=== PATIENT | male | born 1990 | race Caucasian/White ===

== ENCOUNTER 2017-11-30 18:19 | Emergency (ER) | payer OTHER ==
[2017-11-30 18:45] VITALS: BP 126/77; PULSE 97; RESP 18; TEMP 98.5
[2017-11-30] MEDS ORDERED: PROPARACAINE 0.5% OPHTH DROPS 15 ML BTL BOTH EYES STA (19:32)
[2017-11-30] MEDS ORDERED: DIPH,PERTUS(ACELL)TETVAC-LF 0.5 ML VIAL IM ONE (19:42)
[2017-11-30] MEDS ORDERED: ERYTHROMYCIN 5 MG/GM OPHTH OINT 3.5 GM TUBE RIGHT EYE STA (19:45)
--- NOTE | 2017-11-30 20:14 | ED ---
Eye Problem HPI - General Chief complaint: Eye Problems Stated complaint: foreign body rt eye Time Seen by Provider: 11/30/17 19:01 Source: patient, RN notes reviewed, old records reviewed Mode of arrival: ambulatory Limitations: no limitations - History of Present Illness Initial comments: Patient is a 27-year-old male with your complaint of right eye irritation. Patient ports they had a metal foreign body with in the right eye for the past three days. He went to an radio director in a try to remove the foreign body yesterday was unsuccessful attempt. Patient states that he left that office. He thought it would just come out on it's own. Continuing to bother him.Patient does not wear contacts or glasses. He reports that he did this while grinding metal. - Related Data Previous Rx's Medication Instructions Recorded Erythromycin Ophth Oint [Romycin 1 applic RIGHT EYE QID #1 tube 11/30/17 Ophth Oint] Allergies Allergy/AdvReac Type Severity Reaction Status Date / Time Penicillins Allergy Rash/Hives Verified 11/30/17 18:45 Review of Systems ROS Statement: Those systems with pertinent positive or pertinent negative responses have been documented in the HPI. ROS Other: All systems not noted in ROS Statement are negative. Past Medical History Past Medical History: No Reported History History of Any Multi-Drug Resistant Organisms: None Reported Past Surgical History: No Surgical Hx Reported Past Psychological History: No Psychological Hx Reported Smoking Status: Current every day smoker Past Alcohol Use History: Occasional Past Drug Use History: Marijuana General Exam - General Exam Comments Initial Comments: 27 year old male, no acute distress. Limitations: no limitations General appearance: alert, in no apparent distress Head exam: Present: atraumatic, normocephalic, normal inspection Eye exam: Present: normal appearance, PERRL, EOMI, conjunctival injection (R eye. ), other (Metal foreign body at 11 oclock position with surrounding rust ring. ). Absent: scleral icterus, periorbital swelling ENT exam: Present: normal exam, mucous membranes moist Neck exam: Present: normal inspection. Absent: tenderness, meningismus, lymphadenopathy Respiratory exam: Present: normal lung sounds bilaterally. Absent: respiratory distress, wheezes, rales, rhonchi, stridor Cardiovascular Exam: Present: regular rate, normal rhythm, normal heart sounds. Absent: systolic murmur, diastolic murmur, rubs, gallop, clicks GI/Abdominal exam: Present: soft, normal bowel sounds. Absent: distended, tenderness, guarding, rebound, rigid Psychiatric exam: Present: normal affect, normal mood Skin exam: Present: warm, dry, intact, normal color. Absent: rash Course Vital Signs 11/30/17 18:41 Temperature 98.5 F Pulse Rate 97 Respiratory 18 Rate Blood Pressure 126/77 O2 Sat by Pulse 98 Oximetry Medical Decision Making - Medical Decision Making 27 year old male with metal foriegn body at 11 oclock position of R eye. Propariacine instilled into the eye, and with using Street lamp and alter brush I was able to remove rust ring and foreign body. This took multiple attempts as patient foreign body was embedded within the cornea. Discussed using antibiotic ointment for eye and to follow up with opthalmology. Discussed return parameters. Given TDAP vaccines. Disposition Clinical Impression: Foreign body of right eye Disposition: HOME SELF-CARE Condition: Good Instructions: Eye Foreign Body (ED) Additional Instructions: Patient denies follow-up with ophthalmology on Saturday. Apply the eye ointment and every 4 hours. Return to emergency department if any alarming signs or symptoms occur. Prescriptions: Erythromycin Ophth Oint [Romycin Ophth Oint] 1 applic RIGHT EYE QID #1 tube Is patient prescribed a controlled substance at d/c from ED?: No Referrals: None,Stated [Primary Care Provider] - 1-2 days Sixto Toledo MD [STAFF PHYSICIAN] - 1-2 days Time of Disposition: 20:13
== END 2017-11-30 20:19 | disposition home or self-care (01) ==
LOC: EC 18:19
DX: T15.01XA Foreign body in cornea, right eye, initial encounter (principal); F17.200 Nicotine dependence, unspecified, uncomplicated; Z88.0 Allergy status to penicillin; Z23 Encounter for immunization; Y93.89 Activity, other specified
CPT/HCPCS: 65220; 90471; 90715; 99283

== ENCOUNTER 2019-09-17 16:49 | Emergency (ER) | payer OTHER ==
[2019-09-17] MEDS ORDERED: SULFAMETHOX-TMP 800-160MG 1 EACH TAB PO STA (17:47)
[2019-09-17] MEDS ORDERED: CEPHALEXIN 500MG STARTER PACK 4 CAP BTL PO STA (18:22)
[2019-09-17] MEDS ORDERED: LIDOCAINE 1% INJ 10MG/ML (20 ML MDV) SQ STA (19:13)
--- NOTE | 2019-09-17 19:23 | XR ---
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 No radiopaque foreign bodies. The soft tissues are remarkable for diffuse mild/moderate soft tissue swelling and prominent soft tis elvira emphysema along the entire palmar surface of the third digit and most pronounced at the level of the middle and distal phalanx. IMPRESSION: Prominent soft tissue findings.
--- NOTE | 2019-09-17 19:39 | ED ---
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 Patient reports there was only water and the electric power superintendent. He states that his tetanus is up-to-date within last few months. He reports full active range of motion sensation is digit. He denies any other acute complaints. Systemic: Pt denies fatigue, fever/chills, rash. Pt denies weakness, night sweats, weight loss. Neuro: Pt denies headache, visual disturbances, syncope or pre-syncope. HEENT: Pt denies ocular discharge or irritation, otalgia, rhinorrhea, pharyngitis or notable lymphadenopathy. Cardiopulmonary: Pt denies chest pain, SOB, heart palpitations, dyspnea on exertion. Abdominal/GI: Pt denies abdominal pain, n/v/d. : Pt denies dysuria, burning w/ urination, frequency/urgency. Denies new onset urinary or bowel incontinence. MSK: Pt denies myalgia, loss of strength or function in extremities. Neuro: Pt denies new onset weakness, paresthesias. - Related Data Previous Rx's Medication Instructions Recorded Erythromycin Ophth Oint [Romycin 1 applic RIGHT EYE QID #1 tube 11/30/17 Ophth Oint] Cephalexin [Keflex] 500 mg PO Q6HR 10 Days #40 cap 09/17/19 Allergies Allergy/AdvReac Type Severity Reaction Status Date / Time Penicillins Allergy Rash/Hives Verified 09/17/19 17:23 Review of Systems ROS Statement: Those systems with pertinent positive or pertinent negative responses have been documented in the HPI. ROS Other: All systems not noted in ROS Statement are negative. Past Medical History Past Medical History: No Reported History History of Any Multi-Drug Resistant Organisms: None Reported Past Surgical History: No Surgical Hx Reported Past Psychological History: No Psychological Hx Reported Smoking Status: Current every day smoker Past Alcohol Use History: Occasional Past Drug Use History: Marijuana General Exam - General Exam Comments Initial Comments: Constitutional: NAD, AOX3, Pt has pleasant affect. HEENT: NC/AT, trachea midline, neck supple, no lymphadenopathy. xternal ears appear normal, without discharge. Mucous membranes moist. Eyes PERRLA, EOM intact. There is no scleral icterus. No pallor noted. Cardiopulmonary: RRR, no murmurs, rubs or gallops, no JVD noted. Lungs CTAB in anterior and posterior greer. No peripheral edema. Neuro: CN II-XII grossly intact.. No cervical spinal tenderness. MSK: 1.5 cm laceration pad of the third digit left hand. Full active range of motion of digit. Flexion and extension intact. Full active ROM of hand. Sensation intact. Capillary refill is 2 seconds. Loosely approximated with one simple interrupted suture. Irrigated. Full active ROM in upper and lower extremities, 5/5 stregnth. Limitations: no limitations Course Vital Signs 09/17/19 09/17/19 17:23 19:59 Temperature 98.1 F 98.9 F Pulse Rate 63 69 Respiratory 18 17 Rate Blood Pressure 101/65 125/63 O2 Sat by Pulse 99 100 Oximetry Procedures - Laceration Laceration #1 Consent Obtained: verbal consent Site: hand Size (cm): 1 (1.5) Description: linear Anesthetic Used: lidocaine 1% Anesthesia Technique: local infiltration Amount (mls): 1 Pre-repair: wound explored, irrigated extensively, deep structures intact Type of Sutures: nylon Size of Sutures: 5-0 Number of Sutures: 1 (loose approximation) Technique: simple, interrupted Patient Tolerated Procedure: well, no complications Medical Decision Making - Medical Decision Making 29-year-old male patient in [place] complaint of laceration to palmar aspect left 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 Patient reports there was only water and the electric power superintendent. He states that his tetanus is up-to-date within last few months. He reports full active range of motion sensation is digit. He denies any other acute complaints. Pt VSS, afebrile. Physical exam displayed: 1.5 cm laceration pad of the third digit left hand. Full active range of motion of digit. Flexion and extension intact. Sensation intact. Capillary refill is 2 seconds. Loosely approximated with one simple interrupted suture. Irrigated and cleaned. Plain film displayed mild to moderate soft tissue swelling prone soft tissue emphysema. Case was discussed with Dr. Gallegos who recommended antibiotics loose approximation with one suture to the laceration soft wrap outpatient follow-up with his office. This was performed. Patient will be discharged with Keflex and return precautions. Case discussed with Dr. Sal. Disposition Clinical Impression: High-pressure injection injury of finger Disposition: HOME SELF-CARE Condition: Stable Instructions (If sedation given, give patient instructions): Finger Laceration (ED) Additional Instructions: Take antibiotics as directed. Keep area clean and bandaged. Follow up with Dr. Gallegos tomorrow. Monitor for signs of infection including redness pain and decreased range of motion Please return for suture removal: Hand: 7-10 days Please monitor for signs and symptoms of infection including: redness, warmth, drainage, discharge. Please return to ED if these signs or symptoms occur, new signs or symptoms develop or if condition worsens in anyway. Prescriptions: Cephalexin [Keflex] 500 mg PO Q6HR 10 Days #40 cap Is patient prescribed a controlled substance at d/c from ED?: No Referrals: None,Stated [Primary Care Provider] - 1-2 days Jeremiah Gallegos DO [Medical Doctor] - 1-2 days Wesley Castillo [STAFF PHYSICIAN] - 1-2 days
[2019-09-17 20:16] VITALS: BP 125/63; PULSE 69; RESP 17; TEMP 98.9
== END 2019-09-17 19:59 | disposition home or self-care (01) ==
LOC: EC 16:49
DX: S61.412A Laceration without foreign body of left hand, initial encounter (principal); F17.200 Nicotine dependence, unspecified, uncomplicated; Z88.0 Allergy status to penicillin; W26.8XXA Contact with other sharp object(s), not elsewhere classified, initial encounter; Y93.89 Activity, other specified
CPT/HCPCS: 73130; 99283; 12001; J2001